=== PATIENT | female | born 1995 | race Caucasian/White ===

== ENCOUNTER 2019-03-24 08:21 | Emergency (ER) | payer OTHER ==
--- NOTE | 2019-03-24 08:35 | EDM.PDOC ---
ED HPI GENERAL MEDICAL PROBLEM - General Chief Complaint: HEAVY DUTY CUSTODIAN Problem Stated Complaint: 7 WKS PREG, BLEEDING Time Seen by Provider: 03/24/19 08:29 - History of Present Illness INITIAL COMMENTS - FREE TEXT/NARRATIVE: HISTORY AND PHYSICAL: History of present illness: Patient's 23-year-old female reportedly 7 weeks presents concern of vaginal spotting this has improved she has no cramping abdominal pain no other complaints she has seen an HEAD CUSTODIAN 1 she has not had an ultrasound or any other diagnostics. Review of systems: As per history of present illness and below otherwise all systems reviewed and negative. Past medical history: As per history of present illness and as reviewed below otherwise noncontributory. Surgical history: As per history of present illness and as reviewed below otherwise noncontributory. Social history: No reported history of drug or alcohol abuse. Family history: As per history of present illness and as reviewed below otherwise noncontributory. Physical exam: HEENT: Atraumatic, normocephalic, pupils reactive, negative for conjunctival pallor or scleral icterus, mucous membranes moist, throat clear, neck supple, nontender, trachea midline. Lungs: Clear to auscultation, breath sounds equal bilaterally, chest nontender. Heart: S1S2, regular, negative for clicks, rubs, or JVD. Abdomen: Soft, nondistended, nontender. Negative for masses or hepatosplenomegaly. Negative for costovertebral tenderness. Pelvis: Stable nontender. Genitourinary: Deferred. Rectal: Deferred. Extremities: Atraumatic, negative for cords or calf pain. Neurovascular unremarkable. Neuro: Awake, alert, oriented. Cranial nerves II through XII unremarkable. Cerebellum unremarkable. Motor and sensory unremarkable throughout. Exam nonfocal. Diagnostics: EBC CMP quantitative beta ABO Rh pelvic ultrasound Therapeutics: None Impression: #1 threatened miscarriage Definitive disposition and diagnosis as appropriate pending reevaluation and review of above. - Related Data Allergies Allergy/AdvReac Type Severity Reaction Status Date / Time No Known Allergies Allergy Verified 03/24/19 08:46 Home Meds: Home Meds . [No Known Home Meds] 03/24/19 [History] ED ROS GENERAL - Review of Systems Review Of Systems: Comprehensive ROS is negative, except as noted in HPI. ED EXAM, GENERAL - Physical Exam Exam: See Below (See dictation) Course - Vital Signs Text/Narrative:: Discussed with patient need for close follow-up repeat quantitative beta hCG in 48 hours that findings are most likely consistent with early IUP but that threatened remains in the differential and vaginal rest and returning for pain bleeding dizziness or other concerns as discussed are important. Patient agrees and understands Last Recorded V/S: Last Vital Signs Temp 36.4 C 03/24/19 08:30 Pulse 130 H 03/24/19 08:30 Resp 18 03/24/19 08:30 BP 147/91 H 03/24/19 08:30 Pulse Ox 96 03/24/19 08:30 - Orders/Labs/Meds Labs: Laboratory Tests 03/24/19 03/24/19 03/24/19 Range/Units 08:47 08:47 08:47 WBC 11.47 H (4.0-11.0) K/uL RBC 4.60 (4.30-5.90) M/uL Hgb 14.3 (12.0-16.0) g/dL Hct 40.8 (36.0-46.0) % MCV 88.7 (80.0-98.0) fL MCH 31.1 (27.0-32.0) pg MCHC 35.0 (31.0-37.0) g/dL RDW Std Deviation 39.8 (28.0-62.0) fl RDW Coeff of Elizabeth 13 (11.0-15.0) % Plt Count 158 (150-400) K/uL MPV 11.50 (7.40-12.00) fL Neut % (Auto) 77.4 (48.0-80.0) % Lymph % (Auto) 14.6 L (16.0-40.0) % Placer % (Auto) 6.3 (0.0-15.0) % Eos % (Auto) 1.5 (0.0-7.0) % Baso % (Auto) 0.2 (0.0-1.5) % Neut # (Auto) 8.9 H (1.4-5.7) K/uL Lymph # (Auto) 1.7 (0.6-2.4) K/uL Placer # (Auto) 0.7 (0.0-0.8) K/uL Eos # (Auto) 0.2 (0.0-0.7) K/uL Baso # (Auto) 0.0 (0.0-0.1) K/uL Nucleated RBC % 0.0 /100WBC Nucleated RBCs # 0 K/uL Sodium 138 (136-145) mmol/L Potassium 4.2 (3.5-5.1) mmol/L Chloride 105 (98-107) mmol/L Carbon Dioxide 24.0 (21.0-32.0) mmol/L BUN 10 (7.0-18.0) mg/dL Creatinine 0.7 (0.6-1.0) mg/dL Est Cr Clr Drug Dosing TNP Estimated GFR (MDRD) > 60.0 ml/min Glucose 97 (74-106) mg/dL Calcium 8.8 (8.5-10.1) mg/dL Total Bilirubin 0.5 (0.2-1.0) mg/dL AST 13 L (15-37) IU/L ALT 22 (14-63) IU/L Alkaline Phosphatase 54 (46-116) U/L Total Protein 7.7 (6.4-8.2) g/dL Albumin 4.5 (3.4-5.0) g/dL Globulin 3.2 (2.6-4.0) g/dL Albumin/Globulin Ratio 1.4 (0.9-1.6) HCG, Quant 989.0 mIU/mL Blood Type 03/24/19 Range/Units 08:47 WBC (4.0-11.0) K/uL RBC (4.30-5.90) M/uL Hgb (12.0-16.0) g/dL Hct (36.0-46.0) % MCV (80.0-98.0) fL MCH (27.0-32.0) pg MCHC (31.0-37.0) g/dL RDW Std Deviation (28.0-62.0) fl RDW Coeff of Elizabeth (11.0-15.0) % Plt Count (150-400) K/uL MPV (7.40-12.00) fL Neut % (Auto) (48.0-80.0) % Lymph % (Auto) (16.0-40.0) % Placer % (Auto) (0.0-15.0) % Eos % (Auto) (0.0-7.0) % Baso % (Auto) (0.0-1.5) % Neut # (Auto) (1.4-5.7) K/uL Lymph # (Auto) (0.6-2.4) K/uL Placer # (Auto) (0.0-0.8) K/uL Eos # (Auto) (0.0-0.7) K/uL Baso # (Auto) (0.0-0.1) K/uL Nucleated RBC % /100WBC Nucleated RBCs # K/uL Sodium (136-145) mmol/L Potassium (3.5-5.1) mmol/L Chloride (98-107) mmol/L Carbon Dioxide (21.0-32.0) mmol/L BUN (7.0-18.0) mg/dL Creatinine (0.6-1.0) mg/dL Est Cr Clr Drug Dosing Estimated GFR (MDRD) ml/min Glucose (74-106) mg/dL Calcium (8.5-10.1) mg/dL Total Bilirubin (0.2-1.0) mg/dL AST (15-37) IU/L ALT (14-63) IU/L Alkaline Phosphatase (46-116) U/L Total Protein (6.4-8.2) g/dL Albumin (3.4-5.0) g/dL Globulin (2.6-4.0) g/dL Albumin/Globulin Ratio (0.9-1.6) HCG, Quant mIU/mL Blood Type A POSITIVE Departure - Departure Time of Disposition: 10:32 Disposition: Home, Self-Care 01 Condition: Good Clinical Impression: Threatened , Hemorrhage, antepartum, first trimester - Discharge Information Referrals: Cynthia Mantilla MD [Primary Care Provider] - Forms: ED Department Discharge Additional Instructions: The following information is given to patients seen in the emergency department who are being discharged to home. This information is to outline your options for follow-up care. We provide all patients seen in our emergency department with a follow-up referral. The need for follow-up, as well as the timing and circumstances, are variable depending upon the specifics of your emergency department visit. If you don't have a primary care physician on staff, we will provide you with a referral. We always advise you to contact your personal physician following an emergency department visit to inform them of the circumstance of the visit and for follow-up with them and/or the need for any referrals to a consulting specialist. The emergency department will also refer you to a specialist when appropriate. This referral assures that you have the opportunity for followup care with a specialist. All of these measure are taken in an effort to provide you with optimal care, which includes your followup. Under all circumstances we always encourage you to contact your private physician who remains a resource for coordinating your care. When calling for followup care, please make the office aware that this follow-up is from your recent emergency room visit. If for any reason you are refused follow-up, please contact the [facility] emergency department at and asked to speak to the emergency department charge nurse. Follow-up HEAVY DUTY CUSTODIAN as discussed vaginal rest as discussed repeat quantitative beta hCG in 48 hours return as needed as discussed
[2019-03-24 09:14] LABS: BLOOD UREA NITROGEN,BUN 10 mg/dL (7.0-18.0); CHLORIDE,CL 105 mmol/L (98-107); GLUCOSE RANDOM 97 mg/dL (74-106); POTASSIUM,K 4.2 mmol/L (3.5-5.1); SODIUM,NA 138 mmol/L (136-145)
--- NOTE | 2019-03-24 10:16 | US ---
INDICATION: Pain, vaginal bleeding. TECHNIQUE: Ultrasound OB pelvis transvaginal. Real time gonzales scale imaging of the pelvis was performed. COMPARISON: None FINDINGS: Sonographic imaging demonstrates a small fluid collection within the uterine endometrial canal likely representing a gestational sac. Measuring 5 millimeters in mean diameter corresponding with a gestational age of 5 weeks 0 days. A pole is not visualized likely due to the early gestational age. Correlation with serial beta HCGs and/or followup sonography in 2- 3 weeks is recommended. The placenta has not yet developed. The gestational sac has a normal appearance and there is no evidence of a perigestational hemorrhage. The amount of fluid within the sac appears appropriate for gestational age. The cervix is closed. The myometrium appears normal. The ovaries are of normal size with the right ovary measuring 2.8 x 2.4 x 1.9 centimeters and the left ovary measuring 2.9 x 2.7 x 1.5 centimeters. There are no suspicious fluid collections noted in the cul-de-sac. IMPRESSION: 1. Small fluid collection within the uterine endometrial canal measures 5 millimeters in diameter and could represent a gestational sac corresponding with a gestational age of 5 weeks 0 days. A pole is not identified. Correlation with serial beta HCGs and/or followup sonography in 2-3 weeks is recommended. 2. Other findings are unremarkable as noted above. Dictated by Basil Rivas MD @ Mar 24 2019 10:08AM Signed by Dr. Basil Rivas @ Mar 24 2019 10:14AM
== END 2019-03-24 10:45 | disposition home or self-care (01) ==
LOC: MW.ED 08:21
DX: O20.0 Threatened abortion (principal); Z3A.01 Less than 8 weeks gestation of pregnancy
CPT/HCPCS: 36415; 76801; 76801-26; 80053; 84702; 85025; 86900; 86901; 99283; 99284-25

== ENCOUNTER 2021-02-21 17:13 | Inpatient (IN) | payer BC ==
[2021-02-21] MEDS ORDERED: Sodium Chloride 0.9% 10 ML Syringe FLUSH PRN (17:19)
[2021-02-21] MEDS ORDERED: Sodium Chloride 0.9% 10 ML SDV IV PRN (17:19)
[2021-02-21] MEDS ORDERED: Terbutaline 1 MG/ML SDV SUBCUT PRN (17:19)
[2021-02-21] MEDS ORDERED: Tranexamic Acid 1,000 MG in Sodium Chloride 0.9% 100 ML IV PRN (17:19)
[2021-02-21] MEDS ORDERED: Water For Irrigation,Sterile 1,000 ML Container IRR PRN (17:19)
[2021-02-21] MEDS ORDERED: Methylergonovine 0.2 MG/1 ML Amp IM PRN (17:19)
[2021-02-21] MEDS ORDERED: Nalbuphine 10 MG/1 ML Vial IVPUSH PRN (17:19)
[2021-02-21] MEDS ORDERED: Carboprost Tromethamine 250 MCG/1 ML Amp IM PRN (17:19)
[2021-02-21] MEDS ORDERED: Misoprostol 200 MCG Tab PO PRN (17:19)
[2021-02-21] MEDS ORDERED: Sodium Chloride 0.9% 2.5 ML Syringe FLUSH PRN (17:19)
[2021-02-21] MEDS ORDERED: Misoprostol 25 MCG (1/4 of 100 MCG) Tab VAG PRN (17:19)
[2021-02-21] MEDS ORDERED: Lidocaine 1% 50 ML MDV INJECT PRN (17:19)
[2021-02-21] MEDS ORDERED: Butorphanol 1 MG/ML SDV IVPUSH PRN (17:19)
[2021-02-21] MEDS ORDERED: Oxytocin/0.9 % Sodium Chloride 30 UNIT/500 ML BAG IV SCH ×2 (17:30)
[2021-02-21] MEDS: Lactated Ringers 1,000 ML IV SCH ×2 (19:08→22:08)
[2021-02-21] MEDS: Misoprostol 25 MCG (1/4 of 100 MCG) Tab VAG PRN (20:20)
[2021-02-22] MEDS: Lactated Ringers 1,000 ML IV SCH ×4 (05:10→22:00)
[2021-02-22] MEDS: Misoprostol 25 MCG (1/4 of 100 MCG) Tab VAG PRN (08:40)
[2021-02-22] MEDS ORDERED: Ropivacaine HCl/PF 200 ML ONE (14:03)
[2021-02-22] MEDS ORDERED: ePHEDrine 50 MG/ML SDV IVPUSH PRN ×2 (14:27→14:28)
--- NOTE | 2021-02-22 14:27 | PCM.POSTAN ---
POST ANESTHESIA ASSESSMENT - MENTAL STATUS Mental Status: Alert, Oriented - RESPIRATORY Respiratory Status: Respiratory Rate WNL, Airway Patent, O2 Saturation Stable - CARDIOVASCULAR CV Status: Pulse Rate WNL, Blood Pressure Stable - GASTROINTESTINAL GI Status: No Symptoms - POST OP HYDRATION Hydration Status: Adequate & Stable
--- NOTE | 2021-02-22 14:27 | PCM.PREANE ---
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) - Physical Assessment NPO Status Date: 02/22/21 NPO Status Time: 08:00 Height: 5 ft 4 in Weight: 200 lb ASA Class: 3 Mental Status: Alert & Oriented x3 Airway Class: Mallampati = 2 Dentition: Reports: Normal Dentition ROM/Head Extension: Full Lungs: Clear to Auscultation, Normal Respiratory Effort Cardiovascular: Regular Rate, Regular Rhythm - Lab Values: Laboratory Last Values WBC 7.10 K/uL (4.0-11.0) 02/21/21 17:45 RBC 4.24 M/uL (4.30-5.90) L 02/21/21 17:45 Hgb 11.8 g/dL (12.0-16.0) L 02/21/21 17:45 Hct 35.2 % (36.0-46.0) L 02/21/21 17:45 MCV 83.0 fL (80.0-98.0) 02/21/21 17:45 MCH 27.8 pg (27.0-32.0) 02/21/21 17:45 MCHC 33.5 g/dL (31.0-37.0) 02/21/21 17:45 RDW Std Deviation 39.9 fl (28.0-62.0) 02/21/21 17:45 RDW Coeff of Elizabeth 13 % (11.0-15.0) 02/21/21 17:45 Plt Count 165 02/21/21 17:45 MPV 11.20 fL (7.40-12.00) 02/21/21 17:45 Nucleated RBC % 0.0 /100WBC 02/21/21 17:45 Nucleated RBCs # 0 K/uL 02/21/21 17:45 SARS-CoV-2 RNA (KARLENE) POSITIVE (NEGATIVE) H 02/21/21 17:30 Blood Type A POSITIVE 02/21/21 17:45 Antibody Screen NEGATIVE 02/21/21 17:45 - Allergies Allergies/Adverse Reactions: Allergies Allergy/AdvReac Type Severity Reaction Status Date / Time No Known Allergies Allergy Verified 12/20/20 20:24 - Blood Blood Available: Yes - Acknowledgements Anesthesia Type Planned: Epidural Pt an Appropriate Candidate for the Planned Anesthesia: Yes Alternatives and Risks of Anesthesia Discussed w Pt/Guardian: Yes Pt/Guardian Understands and Agrees with Anesthesia Plan: Yes PreAnesthesia Questionnaire HEENT History: Reports: None Cardiovascular History: Reports: None Respiratory History: Reports: None Gastrointestinal History: Reports: None Genitourinary History: Reports: None LUBE MAN History: Reports: Polycystic Ovaries, , Spontaneous , Other (See Below) Other OB/BYN History: Oligomenorrhea, Bicornuate Uterus. Musculoskeletal History: Reports: None Neurological History: Reports: None Psychiatric History: Reports: None Endocrine/Metabolic History: Reports: None Hematologic History: Reports: Other (See Below) Other Hematologic History: Thrombocytopenia Immunologic History: Reports: None Oncologic (Cancer) History: Reports: None Dermatologic History: Reports: None - Infectious Disease History Infectious Disease History: Reports: Influenza - Past Surgical History Head Surgeries/Procedures: Reports: None HEENT Surgical History: Reports: Adenoidectomy, Tonsillectomy Cardiovascular Surgical History: Reports: None Respiratory Surgical History: Reports: None GI Surgical History: Reports: None Female Surgical History: Reports: None Endocrine Surgical History: Reports: None Neurological Surgical History: Reports: None Musculoskeletal Surgical History: Reports: None Oncologic Surgical History: Reports: None Dermatological Surgical History: Reports: None - SUBSTANCE USE Tobacco Use Status *Q: Never Tobacco User Tobacco Use Within Last Twelve Months: No Second Hand Smoke Exposure: No Recreational Drug Use History: No - HOME MEDS Home Medications: Home Meds Pnv No.95/Ferrous Fum/Folic AC [ Tablet] 1 tab PO BEDTIME 12/20/20 [History] - CURRENT (IN HOUSE) MEDS Current Meds: Current Medications Butorphanol Tartrate (Butorphanol 1 Mg/Ml Sdv) 1 mg IVPUSH Q1H PRN PRN Reason: Pain (severe 7-10) Carboprost Tromethamine (Carboprost Tromethamine 250 Mcg/1 Ml Amp) 250 mcg IM ASDIRECTED PRN PRN Reason: Post Hemorrhage Oxytocin/Sodium Chloride (Oxytocin 30 Unit In Ns 0.9% 500 Ml Premix) 30 unit in 500 mls @ 500 mls/hr IV TITRATE KARLA Tranexamic Acid 1,000 mg/ (Sodium Chloride) 110 mls @ 660 mls/hr IV ONETIME PRN PRN Reason: Bleeding Oxytocin/Sodium Chloride (Oxytocin 30 Unit In Ns 0.9% 500 Ml Premix) 30 unit in 500 mls @ 2 mls/hr IV TITRATE KARLA; Protocol Last Admin: 02/22/21 14:22 Dose: 2 munits/min, 2 mls/hr Documented by: Lactated Ringer's (Ringers, Lactated) 1,000 mls @ 150 mls/hr IV ASDIRECTED KARLA Last Admin: 02/22/21 14:16 Dose: 150 mls/hr Documented by: Lidocaine HCl (Lidocaine 1% 50 Ml Mdv) 50 ml INJECT ONETIME PRN PRN Reason: Laceration repair Methylergonovine Maleate (Methylergonovine 0.2 Mg/1 Ml Amp) 0.2 mg IM ASDIRECTED PRN PRN Reason: Post Hemorrhage Misoprostol (Misoprostol 200 Mcg Tab) 200 mcg PO ONETIME PRN PRN Reason: Post Hemorrhage Misoprostol (Misoprostol 25 Mcg (1/4 Of 100 Mcg) Tab) 25 mcg VAG ONETIME PRN PRN Reason: Cervical Ripening Last Admin: 02/22/21 08:40 Dose: 25 mcg Documented by: Misoprostol (Misoprostol 25 Mcg (1/4 Of 100 Mcg) Tab) 25 mcg VAG Q6H PRN PRN Reason: Cervical Ripening Last Admin: 02/22/21 02:28 Dose: 25 mcg Documented by: Nalbuphine HCl (Nalbuphine 10 Mg/1 Ml Vial) 10 mg IVPUSH Q1H PRN PRN Reason: Pain (severe 7-10) Sodium Chloride (Sodium Chloride 0.9% 10 Ml Syringe) 10 ml FLUSH ASDIRECTED PRN PRN Reason: Keep Vein Open Sodium Chloride (Sodium Chloride 0.9% 2.5 Ml Syringe) 2.5 ml FLUSH ASDIRECTED PRN PRN Reason: Keep Vein Open Sodium Chloride (Sodium Chloride 0.9% 10 Ml Sdv) 10 ml IV ASDIRECTED PRN PRN Reason: IV Use Sterile Water (Water For Irrigation,Sterile 1,000 Ml Container) 1,000 ml IRR A SDIRECTED PRN PRN Reason: delivery Terbutaline Sulfate (Terbutaline 1 Mg/Ml Sdv) 0.25 mg SUBCUT ASDIRECTED PRN PRN Reason: Tacysystole Discontinued Medications Ropivacaine (Naropin 0.2%) Confirm Administered Dose 200 mls @ as directed .ROUTE .[facility] ONE Stop: 02/22/21 14:04
[2021-02-22] MEDS ORDERED: Ropivacaine 0.2% 2MG/ML 200 ML Bag EPIDUR SCH (14:30)
--- NOTE | 2021-02-22 14:33 | PCM.SN.2 ---
Time Documentation - Pre-Procedure Checklist Attending Provider Aware: Yes Chart Reviewed: Yes Consent Signed: Yes Labs Reviewed: Yes VS/FHR Reviewed: Yes Patient Identification Confirmation Method: Reports: Chart Barcode, Chart Visual, ID Band Barcode, Verbal Parent Pt an Appropriate Candidate for the Planned Anesthesia: Yes Alternatives and Risks of Anesthesia Discussed w Pt/Guardian: Yes - Procedure Procedure Start Date: 02/22/21 Procedure Start Time: 13:[address]: Reports: Blood Pressure, Heart Rate, SPO2 Functional IV: Yes Safety Measures: Reports: Patient Identified, Procedure Verified, Site Verified, Procedure Time Out Patient Position: Reports: Sitting Prep: Reports: Alcohol x3, Betadine x3 Local Anesthetic: Reports: Intradermal Wheal w Lidocaine 1% Regional Placement Level: Reports: L2-3 Needle: Reports: 17 g Touhy Approach: Reports: Midline Technique: Reports: SIERRA Glass Syringe Parasthesia: Reports: None Fluid Obtained: Reports: None Test Dose Time: 13:55 Test Dose Medication: Reports: Lidocaine 1.5% w Epinephrine 1:200,000 Test Dose Response: Reports: Negative Continuous Infusion Start Time: 14:30 Continuous Infusion Medication: 0.2% Naropin Continuous Infusion Rate: 16cc/hr Continuous Infusion PCS Bolus Option: 4cc Continuous Infusion Lockout Dose (cc/hr): 28 Patient Position Post Placement: Reports: Supline/DOTTY Post-procedure Pain Level: 3 VS and FHR Monitored in Unit Post Placement: Yes Procedure End Date: 02/22/21 Procedure End Time: 14:50
[2021-02-22] MEDS ORDERED: Acetaminophen 325 MG Tab PO ONE (19:33)
[2021-02-22] MEDS ORDERED: Acetaminophen 500 MG Tab ONE (19:38)
[2021-02-22] MEDS ORDERED: Acetaminophen 500 MG Tab PO ONE (19:42)
--- NOTE | 2021-02-22 20:57 | PCM.DEL ---
L & D Note - General Info Date of Service: 02/22/21 Mother's Due Date: 03/01/21 - Delivery Note Labor: Induced by Oxytocin Cervical Ripening Method: Misoprostil Delivery Outcome: Livebirth Infant Delivery Method: Spontaneous Vaginal Delivery-Single Presentation: Left Occiput Anterior (TAYA) Nuchal Cord: Reduced Prep: Other Anesthesia Type: Epidural Amniotic Fluid Description: Clear Episiotomy Type: None Laceration: 2nd Degree Suture type: Vicryl Suture size: 2-0 Placenta: Intact, Spontaneous Cord: 3 Vessels Estimated Blood Loss: 300 Resuscitation Needed: No : Suctioned Score 1 min: 8 Score 5 min: 9 - General Info Date of Service: 02/22/21 - Patient Data Vitals - Most Recent: Last Vital Signs Temp 37.2 C 02/22/21 19:49 Pulse Resp BP Pulse Ox Weight - Most Recent: 90.718 kg I&O - Last 24 Hours: Intake & Output 02/22/21 02/22/21 02/22/21 06:59 14:59 22:59 Intake Total 1000 975 Balance 1000 975 Med Orders - Current: Current Medications Butorphanol Tartrate (Butorphanol 1 Mg/Ml Sdv) 1 mg IVPUSH Q1H PRN PRN Reason: Pain (severe 7-10) Carboprost Tromethamine (Carboprost Tromethamine 250 Mcg/1 Ml Amp) 250 mcg IM ASDIRECTED PRN PRN Reason: Post Hemorrhage Ephedrine Sulfate (Ephedrine 50 Mg/Ml Sdv) 10 mg IVPUSH Q5M PRN PRN Reason: Hypotension Ephedrine Sulfate (Ephedrine 50 Mg/Ml Sdv) 10 mg IVPUSH Q1M PRN PRN Reason: Hypotension Oxytocin/Sodium Chloride (Oxytocin 30 Unit In Ns 0.9% 500 Ml Premix) 30 unit in 500 mls @ 500 mls/hr IV TITRATE KARLA Tranexamic Acid 1,000 mg/ (Sodium Chloride) 110 mls @ 660 mls/hr IV ONETIME PRN PRN Reason: Bleeding Oxytocin/Sodium Chloride (Oxytocin 30 Unit In Ns 0.9% 500 Ml Premix) 30 unit in 500 mls @ 2 mls/hr IV TITRATE KARLA; Protocol Last Titration: 02/22/21 16:50 Dose: 10 munits/min, 10 mls/hr Documented by: Lactated Ringer's (Ringers, Lactated) 1,000 mls @ 150 mls/hr IV ASDIRECTED KARLA Last Admin: 02/22/21 18:49 Dose: 150 mls/hr Documented by: Lidocaine HCl (Lidocaine 1% 50 Ml Mdv) 50 ml INJECT ONETIME PRN PRN Reason: Laceration repair Methylergonovine Maleate (Methylergonovine 0.2 Mg/1 Ml Amp) 0.2 mg IM ASDIRECTED PRN PRN Reason: Post Hemorrhage Miscellaneous Medication (Phenylephrine Hcl In 0.9% Nacl 1 Mg/10 Ml Syringe) 0.1 mg IVPUSH Q1M PRN PRN Reason: Hypotension Misoprostol (Misoprostol 200 Mcg Tab) 200 mcg PO ONETIME PRN PRN Reason: Post Hemorrhage Misoprostol (Misoprostol 25 Mcg (1/4 Of 100 Mcg) Tab) 25 mcg VAG ONETIME PRN PRN Reason: Cervical Ripening Last Admin: 02/22/21 08:40 Dose: 25 mcg Documented by: Misoprostol (Misoprostol 25 Mcg (1/4 Of 100 Mcg) Tab) 25 mcg VAG Q6H PRN PRN Reason: Cervical Ripening Last Admin: 02/22/21 02:28 Dose: 25 mcg Documented by: Nalbuphine HCl (Nalbuphine 10 Mg/1 Ml Vial) 10 mg IVPUSH Q1H PRN PRN Reason: Pain (severe 7-10) Ropivacaine (Ropivacaine 0.2% 2mg/Ml 200 Ml Bag) 400 mg EPIDUR ASDIRECTED KARLA Sodium Chloride (Sodium Chloride 0.9% 10 Ml Syringe) 10 ml FLUSH ASDIRECTED PRN PRN Reason: Keep Vein Open Sodium Chloride (Sodium Chloride 0.9% 2.5 Ml Syringe) 2.5 ml FLUSH ASDIRECTED PRN PRN Reason: Keep Vein Open Sodium Chloride (Sodium Chloride 0.9% 10 Ml Sdv) 10 ml IV ASDIRECTED PRN PRN Reason: IV Use Sterile Water (Water For Irrigation,Sterile 1,000 Ml Container) 1,000 ml IRR ASDIRECTED PRN PRN Reason: delivery Terbutaline Sulfate (Terbutaline 1 Mg/Ml Sdv) 0.25 mg SUBCUT ASDIRECTED PRN PRN Reason: Tacysystole Discontinued Medications Acetaminophen (Acetaminophen 500 Mg Tab) Confirm Administered Dose 1,000 mg .ROUTE .STK-[facility] ONE Stop: 02/22/21 19:39 Acetaminophen (Acetaminophen 500 Mg Tab) 1,000 mg PO ONETIME ONE Stop: 02/22/21 19:43 Last Admin: 02/22/21 19:49 Dose: 1,000 mg Documented by: Ropivacaine (Naropin 0.2%) Confirm Administered Dose 200 mls @ as directed .ROUTE .STK-[facility] ONE Stop: 02/22/21 14:04 - Exam Urinary Catheter Total Time: 0Days 0Hours - Problem List & Annotations (1) Vaginal delivery SNOMED Code(s): 840810928 Code(s): O80 - ENCOUNTER FOR FULL-TERM UNCOMPLICATED DELIVERY Status: Acute Current Visit: Yes - Problem List Review Problem List Initiated/Reviewed/Updated: Yes - My Orders Last 24 Hours: My Active Orders 02/22/21 Lunch Clear Liquid Diet [DIET]
[2021-02-22] MEDS ORDERED: Bisacodyl 10 MG Supp RECTAL PRN (20:59)
[2021-02-22] MEDS ORDERED: Methylergonovine 0.2 MG/1 ML Amp IM PRN (20:59)
[2021-02-22] MEDS ORDERED: Acetaminophen 500 MG Tab PO PRN ×2 (20:59)
[2021-02-22] MEDS ORDERED: Ibuprofen 400 MG Tab PO PRN (20:59)
[2021-02-22] MEDS ORDERED: Lanolin 100% Cream 7 GM Tube TOP PRN (20:59)
[2021-02-22] MEDS ORDERED: Docusate Sodium 100 MG Cap PO PRN (20:59)
[2021-02-22] MEDS ORDERED: Tranexamic Acid 1,000 MG in Sodium Chloride 0.9% 100 ML IV PRN (20:59)
[2021-02-22] MEDS ORDERED: Oxytocin/0.9 % Sodium Chloride 30 UNIT/500 ML BAG ONE ×2 (22:08→23:16)
--- NOTE | 2021-02-22 22:30 | OR ---
SURGEON: Harini Jose M.D. DATE OF PROCEDURE: 02/22/2021 PREOPERATIVE DIAGNOSES: 39-week intrauterine , mild gestational thrombocytopenia, suspected growth restriction, COVID positive. POSTOPERATIVE DIAGNOSES: 39-week intrauterine , mild gestational thrombocytopenia, suspected growth restriction, COVID positive. PROCEDURES: Cytotec and Pitocin induction of labor, term spontaneous vaginal delivery, repair of second-degree laceration. PRIMARY SURGEON: Harini Jose MD ANESTHESIA: Epidural. ESTIMATED BLOOD LOSS: 300 mL. FINDINGS: Liveborn male, score of 8 and 9, weighing 3170 g. Hypospadias noted by third helper. A second-degree perineal laceration, repaired. Placenta spontaneous, Schultze intact, with 3 vessels. COMPLICATIONS: None known. DISPOSITION: Mother and baby are in LDR in good condition. BRIEF HISTORY: This is a 25-year-old female. She is G2, P 0-0-1-0. She presents at 39-week gestation, fingertip and thick, for induction of labor. She received 3 doses of Cytotec. She is being induced due to gestational thrombocytopenia, which was mild throughout the with levels above 100, and actually has recovered with an admission platelet count in the 160s. She was seen by Maternal- Medicine. She did have an ultrasound with an abdominal circumference less than the 5th percentile. However, the fetus has developed normally and antepartum monitoring was discontinued due to normal growth. She presented to Labor and Delivery, received 3 doses of Cytotec. She felt that she had spontaneous rupture of membranes approximately at noon. She is known to be group B strep negative, and she received an epidural for pain control, and she progressed to complete. DESCRIPTION OF PROCEDURE: With the patient in dorsal lithotomy position, the patient pushed for less than 1 hour to a 5+ station, at which time, the head was delivered spontaneously and atraumatically over the perineum with support with subsequent delivery of the 's shoulders and body. Nuchal cord had been reduced, and the was handed to the mother in the presence of the nurse attending delivery. The infant was a liveborn male, score of 8 and 9, weighing 3170 g. Note of hypospadias. The Pitocin was initiated after delivery of the infant to assist with delivery of the placenta, which was delivered spontaneously, Schultze intact, with 3 vessels. At 1 minute of life, the cord was doubly clamped and cut. Cord blood had been collected for cord ABGs as well as routine cord blood sampling. After delivery of the placenta, fundal massage revealed a firm uterus 3 cm below the umbilicus. Upon inspection of the pelvis and perineum, there were no periurethral, vaginal sidewall, cervical, or rectal laceration. There was a small perineal laceration, second-degree in nature, repaired with a running lock suture of 3-0 Polysorb for the vaginal mucosa, a deep running suture of the same for the perineum, and a running subcuticular suture of this for the skin. Final sponge, needle, and instrument counts were correct. There were no known complications. Mother and baby remained in LDR in good condition. MARQUIS HUIZAR /[id number]
--- NOTE | 2021-02-22 22:57 | PCM.SN.2 ---
- Free Text/Narrative Note: Called as patient had passed several clots and became hypotensive, dizzy and drowsy. Nurse had started IV bolus, pitocin and fundal massage. When I arrive P was 70's/40's and pulse in 80's expressed additional clots of 196 ML, total blood loss during episode was 974 mg, at delivery was 300 ml. Patient placed in trendelenberg position and symptoms of dizziness improved. Methergine 0.2 mg given IM, TXA withheld due to Covid positive status. Straight cath produced about 10 ml of dark melissa urine. Continual fundal massage over about 15 minutes, minimal dark blood, no further clots. Type and cross 2 U PRBC ordered, but held pending labs. CBC, fibrinogen, CBC ordered. Patient is currently stable BP 108/66 pulse 84 states that her symptoms of dizziness and fatigue are much improved. Time Documentation
[2021-02-22] MEDS: Ibuprofen 800 MG Tab PO PRN (23:27)
[2021-02-23] MEDS: Benzocaine/Menthol 20%-0.5% Spray 78 GM Cannister TOP PRN ×2 (02:11→05:54)
[2021-02-23] MEDS: Witch Hazel Medicated Pads 40/Jar TOP PRN ×2 (02:12→05:53)
[2021-02-23] MEDS: Ibuprofen 800 MG Tab PO PRN ×2 (06:13→14:16)
--- NOTE | 2021-02-23 07:34 | PCM48HPAN ---
Post Anesthesia Note - EVALUATION WITHIN 48HRS OF ANESTHETIC Vital Signs in Normal Range: Yes Patient Participated in Evaluation: Yes Respiratory Function Stable: Yes Airway Patent: Yes Cardiovascular Function Stable: Yes Hydration Status Stable: Yes Pain Control Satisfactory: Yes Nausea and Vomiting Control Satisfactory: Yes Mental Status Recovered: Yes Vital Signs: Last Vital Signs Temp 97.2 F 02/23/21 04:35 Pulse 69 02/23/21 05:45 Resp 18 02/23/21 05:45 BP 105/68 02/23/21 05:45 Pulse Ox 98 02/23/21 05:45
--- NOTE | 2021-02-23 08:19 | PCM.PNPP ---
- General Info Date of Service: 02/23/21 Subjective Update: Minimal lochia since episode of hemorrhage. She would like to work on today. Functional Status: Reports: Pain Controlled, Tolerating Diet, Ambulating, Urinating - Review of Systems General: Reports: No Symptoms HEENT: Reports: No Symptoms Pulmonary: Reports: No Symptoms Cardiovascular: Reports: No Symptoms Gastrointestinal: Reports: No Symptoms Genitourinary: Reports: No Symptoms Musculoskeletal: Reports: No Symptoms Skin: Reports: No Symptoms Neurological: Reports: No Symptoms Psychiatric: Reports: No Symptoms - Patient Data Vital Signs - Most Recent: Last Vital Signs Temp 36.2 C 02/23/21 04:35 Pulse 69 02/23/21 05:45 Resp 18 02/23/21 05:45 BP 105/68 02/23/21 05:45 Pulse Ox 98 02/23/21 05:45 Weight - Most Recent: 90.718 kg I&O - Last 24 Hours: Intake & Output 02/22/21 02/23/21 02/23/21 22:59 06:59 14:59 Intake Total 975 Balance 975 Lab Results - Last 24 Hours: Laboratory Results - last 24 hr 02/21/21 02/22/21 02/22/21 Range/Units 17:45 20:25 22:43 WBC 12.38 H (4.0-11.0) K/uL RBC 3.05 L (4.30-5.90) M/uL Hgb 8.5 L (12.0-16.0) g/dL Hct 25.2 L (36.0-46.0) % MCV 82.6 (80.0-98.0) fL MCH 27.9 (27.0-32.0) pg MCHC 33.7 (31.0-37.0) g/dL RDW Std Deviation 40.0 (28.0-62.0) fl RDW Coeff of Elizabeth 13 (11.0-15.0) % Plt Count 196 (150-400) K/uL MPV 10.20 (7.40-12.00) fL Neut % (Auto) 81.5 H (48.0-80.0) % Lymph % (Auto) 8.9 L (16.0-40.0) % Johnston % (Auto) 9.5 (0.0-15.0) % Eos % (Auto) 0.0 (0.0-7.0) % Baso % (Auto) 0.1 (0.0-1.5) % Neut # (Auto) 10.1 H (1.4-5.7) K/uL Lymph # (Auto) 1.1 (0.6-2.4) K/uL Johnston # (Auto) 1.2 H (0.0-0.8) K/uL Eos # (Auto) 0.0 (0.0-0.7) K/uL Baso # (Auto) 0.0 (0.0-0.1) K/uL Nucleated RBC % 0.0 /100WBC Nucleated RBCs # 0 K/uL APTT (18.6-31.3) SEC Fibrinogen (215-411) mg/dL Cord ABG pH 7.358 (7.18-7.38) Cord ABG Base Excess -4 (-10--2) Cord VBG pH 7.347 (7.25-7.45) Cord VBG Base Excess -5 (-10--2) Blood Type A POSITIVE Antibody Screen NEGATIVE Crossmatch See Detail 02/22/21 02/23/21 Range/Units 22:43 03:15 WBC (4.0-11.0) K/uL RBC (4.30-5.90) M/uL Hgb 9.0 L (12.0-16.0) g/dL Hct 26.4 L (36.0-46.0) % MCV (80.0-98.0) fL MCH (27.0-32.0) pg MCHC (31.0-37.0) g/dL RDW Std Deviation (28.0-62.0) fl RDW Coeff of Elizabeth (11.0-15.0) % Plt Count (150-400) K/uL MPV (7.40-12.00) fL Neut % (Auto) (48.0-80.0) % Lymph % (Auto) (16.0-40.0) % Johnston % (Auto) (0.0-15.0) % Eos % (Auto) (0.0-7.0) % Baso % (Auto) (0.0-1.5) % Neut # (Auto) (1.4-5.7) K/uL Lymph # (Auto) (0.6-2.4) K/uL Johnston # (Auto) (0.0-0.8) K/uL Eos # (Auto) (0.0-0.7) K/uL Baso # (Auto) (0.0-0.1) K/uL Nucleated RBC % /100WBC Nucleated RBCs # K/uL APTT 33.0 H (18.6-31.3) SEC Fibrinogen 251 (215-411) mg/dL Cord ABG pH (7.18-7.38) Cord ABG Base Excess (-10--2) Cord VBG pH (7.25-7.45) Cord VBG Base Excess (-10--2) Blood Type Antibody Screen Crossmatch Med Orders - Current: Current Medications Acetaminophen (Acetaminophen 500 Mg Tab) 500 mg PO Q4H PRN PRN Reason: Pain (mild 1-3) Acetaminophen (Acetaminophen 500 Mg Tab) 1,000 mg PO Q4H PRN PRN Reason: Pain (mild 1-3) Benzocaine/Menthol (Benzocaine/Menthol 20%-0.5% [place] 78 Gm Cannister) 78 gm TOP ASDIRECTED PRN PRN Reason: Perineal Comfort Measure Last Admin: 02/23/21 05:54 Dose: 1 spray Documented by: Bisacodyl (Bisacodyl 10 Mg Supp) 10 mg RECTAL ONETIME PRN PRN Reason: Constipation Docusate Sodium (Docusate Sodium 100 Mg Cap) 100 mg PO Q12H PRN PRN Reason: Constipation Emollient Ointment (Lanolin 100% Cream 7 Gm Tube) 0 gm TOP ASDIRECTED PRN PRN Reason: Sore Nipples Tranexamic Acid 1,000 mg/ (Sodium Chloride) 110 mls @ 660 mls/hr IV ONETIME PRN PRN Reason: Bleeding Ibuprofen (Ibuprofen 400 Mg Tab) 400 mg PO Q4H PRN PRN Reason: Pain (mild 1-3) Ibuprofen (Ibuprofen 800 Mg Tab) 800 mg PO Q6H PRN PRN Reason: Cramping Last Admin: 02/23/21 06:13 Dose: 800 mg Documented by: Methylergonovine Maleate (Methylergonovine 0.2 Mg/1 Ml Amp) 0.2 mg IM ONETIME PRN PRN Reason: Excessive Vaginal Bleeding Last Admin: 02/22/21 22:16 Dose: 0.2 mg Documented by: Po De Souza (Po De Souza Medicated Pads 40/Jar) 1 pad TOP ASDIRECTED PRN PRN Reason: comfort care Last Admin: 02/23/21 05:53 Dose: 1 pad Documented by: Discontinued Medications Acetaminophen (Acetaminophen 500 Mg Tab) Confirm Administered Dose 1,000 mg .ROUTE .STK-MED ONE Stop: 02/22/21 19:39 Acetaminophen (Acetaminophen 500 Mg Tab) 1,000 mg PO ONETIME ONE Stop: 02/22/21 19:43 Last Admin: 02/22/21 19:49 Dose: 1,000 mg Documented by: Butorphanol Tartrate (Butorphanol 1 Mg/Ml Sdv) 1 mg IVPUSH Q1H PRN PRN Reason: Pain (severe 7-10) Carboprost Tromethamine (Carboprost Tromethamine 250 Mcg/1 Ml Amp) 250 mcg IM ASDIRECTED PRN PRN Reason: Post Hemorrhage Ephedrine Sulfate (Ephedrine 50 Mg/Ml Sdv) 10 mg IVPUSH Q5M PRN PRN Reason: Hypotension Ephedrine Sulfate (Ephedrine 50 Mg/Ml Sdv) 10 mg IVPUSH Q1M PRN PRN Reason: Hypotension Oxytocin/Sodium Chloride (Oxytocin 30 Unit In Ns 0.9% 500 Ml Premix) 30 unit in 500 mls @ 500 mls/hr IV TITRATE KARLA Tranexamic Acid 1,000 mg/ (Sodium Chloride) 110 mls @ 660 mls/hr IV ONETIME PRN PRN Reason: Bleeding Oxytocin/Sodium Chloride (Oxytocin 30 Unit In Ns 0.9% 500 Ml Premix) 30 unit in 500 mls @ 2 mls/hr IV TITRATE KARLA; Protocol Last Titration: 02/22/21 21:30 Dose: 0 munits/min, 0 mls/hr Documented by: Lactated Ringer's (Ringers, Lactated) 1,000 mls @ 150 mls/hr IV ASDIRECTED KARLA Last Admin: 02/22/21 22:00 Dose: 150 mls/hr Documented by: Ropivacaine (Naropin 0.2%) Confirm Administered Dose 200 mls @ as directed .ROUTE .STK-MED ONE Stop: 02/22/21 14:04 Oxytocin/Sodium Chloride (Oxytocin 30 Unit In Ns 0.9% 500 Ml Premix) Confirm Administered Dose 30 unit in 500 mls @ as directed [facility] Stop: 02/22/21 22:09 Last Admin: 02/22/21 22:46 Dose: 500 mls/hr Documented by: Oxytocin/Sodium Chloride (Oxytocin 30 Unit In Ns 0.9% 500 Ml Premix) Confirm Administered Dose 30 unit in 500 mls @ as [facility] Stop: 02/22/21 23:17 Last Admin: 02/22/21 23:26 Dose: 250 mls/hr Documented by: Lidocaine HCl (Lidocaine 1% 50 Ml Mdv) 50 ml INJECT ONETIME PRN PRN Reason: Laceration repair Methylergonovine Maleate (Methylergonovine 0.2 Mg/1 Ml Amp) 0.2 mg IM ASDI RECTED PRN PRN Reason: Post Hemorrhage Miscellaneous Medication (Phenylephrine Hcl In 0.9% Nacl 1 Mg/10 Ml Syringe) 0.1 mg IVPUSH Q1M PRN PRN Reason: Hypotension Misoprostol (Misoprostol 200 Mcg Tab) 200 mcg PO ONETIME PRN PRN Reason: Post Hemorrhage Misoprostol (Misoprostol 25 Mcg (1/4 Of 100 Mcg) Tab) 25 mcg VAG ONETIME PRN PRN Reason: Cervical Ripening Last Admin: 02/22/21 08:40 Dose: 25 mcg Documented by: Misoprostol (Misoprostol 25 Mcg (1/4 Of 100 Mcg) Tab) 25 mcg VAG Q6H PRN PRN Reason: Cervical Ripening Last Admin: 02/22/21 02:28 Dose: 25 mcg Documented by: Nalbuphine HCl (Nalbuphine 10 Mg/1 Ml Vial) 10 mg IVPUSH Q1H PRN PRN Reason: Pain (severe 7-10) Ropivacaine (Ropivacaine 0.2% 2mg/Ml 200 Ml Bag) 400 mg EPIDUR ASDIRECTED KARLA Sodium Chloride (Sodium Chloride 0.9% 10 Ml Syringe) 10 ml FLUSH ASDIRECTED PRN PRN Reason: Keep Vein Open Sodium Chloride (Sodium Chloride 0.9% 2.5 Ml Syringe) 2.5 ml FLUSH ASDIRECTED PRN PRN Reason: Keep Vein Open Sodium Chloride (Sodium Chloride 0.9% 10 Ml Sdv) 10 ml IV ASDIRECTED PRN PRN Reason: IV Use Sterile Water (Water For Irrigation,Sterile 1,000 Ml Container) 1,000 ml IRR ASDIRECTED PRN PRN Reason: delivery Terbutaline Sulfate (Terbutaline 1 Mg/Ml Sdv) 0.25 mg SUBCUT ASDIRECTED PRN PRN Reason: Tacysystole - Interaction Infant Disposition, : [place] in Room with Family Interaction: Holding Infant Feeding: Attempted ; Nursed Fair/Poor Support Person: Significant Other - Recovery Exam Fundal Tone: Firm Fundal Level: 2 Fingerbreadths Below Umbilicus Fundal Placement: Midline Lochia Amount: Scant Lochia Color: Rubra/Red Perineum Description: Intact, Minimal Bruising/Swelling Bladder Status: Voiding - Exam General: Alert, Oriented Lungs: Normal Respiratory Effort GI/Abdominal Exam: Soft, Non-Tender, No Distention Extremities: Normal Inspection, Non-Tender, No Pedal Edema Psy/Mental Status: Alert, Normal Affect, Normal Mood - Problem List & Annotations (1) Vaginal delivery SNOMED Code(s): 423886511 Code(s): O80 - ENCOUNTER FOR FULL-TERM UNCOMPLICATED DELIVERY Status: Acute Current Visit: Yes (2) hemorrhage, delivered, current hospitalization SNOMED Code(s): 68628447, 215467350 Code(s): O72.1 - OTHER IMMEDIATE HEMORRHAGE Status: Acute Current Visit: Yes - Problem List Review Problem List Initiated/Reviewed/Updated: Yes - My Orders Last 24 Hours: My Active Orders 02/22/21 20:59 Patient Status [ADT] Routine May Shower [RC] ASDIRECTED Up ad Leeanne [RC] ASDIRECTED Vital Signs [RC] PER UNIT ROUTINE Acetaminophen [Tylenol Extra Strength] 1,000 mg PO Q4H PRN Acetaminophen [Tylenol Extra Strength] 500 mg PO Q4H PRN Benzocaine/Menthol [Dermoplast Pain Relief 20%-0.5% [place]] 78 gm TOP ASDIRECTED PRN Docusate Sodium [Colace] 100 mg PO Q12H PRN Ibuprofen [Motrin] 400 mg PO Q4H PRN Ibuprofen [Motrin] 800 mg PO Q6H PRN Lanolin [Lansinoh HPA] See Dose Instructions TOP ASDIRECTED PRN Methylergonovine [Methergine] 0.2 mg IM ONETIME PRN Tranexamic Acid [Cyklokapron] 1,000 mg Sodium Chloride 0.9% [Normal Saline] 100 ml IV ONETIME bisacodyL [Dulcolax] 10 mg RECTAL ONETIME PRN witch Ethan [Tucks] 1 pad TOP ASDIRECTED PRN Assess Lochia [WOMSER] Per Unit Routine Assess Uterine Involution [WOMSER] Per Unit Routine Peripheral IV Discontinue [OM.PC] Routine Resuscitation Status Routine 02/22/21 21:02 Perineal Care [OM.PC] Per Unit Routine 02/22/21 22:15 PACKED CELLS [RED BLOOD CELLS LP] [BBK] Stat 02/23/21 Breakfast Regular Diet [DIET] - Assessment Assessment:: PPD #1 complicated by hemorrhage due to uterine atony. Now stable, minimal lochia, tolerating diet. - Plan Plan:: Recheck CBC in am, discussed IV iron and patient agrees to proceed, anticipate home tomorrow.
[2021-02-23] MEDS ORDERED: Iron Sucrose Complex 100 MG/5 ML SDV IVPUSH ONE (08:20)
[2021-02-23] MEDS ORDERED: Iron Sucrose Complex 200 MG in Sodium Chloride 0.9% 100 ML IV ONE (08:30)
[2021-02-24] MEDS: Ibuprofen 800 MG Tab PO PRN (07:52)
--- NOTE | 2021-02-24 09:08 | PCM.PNPP ---
- General Info Date of Service: 02/24/21 Functional Status: Reports: Pain Controlled, Tolerating Diet, Ambulating, Urinating - Review of Systems General: Reports: No Symptoms HEENT: Reports: No Symptoms Pulmonary: Reports: No Symptoms Cardiovascular: Reports: No Symptoms Gastrointestinal: Reports: No Symptoms Genitourinary: Reports: No Symptoms Musculoskeletal: Reports: No Symptoms Skin: Reports: No Symptoms Neurological: Reports: No Symptoms Psychiatric: Reports: No Symptoms - Patient Data Vital Signs - Most Recent: Last Vital Signs Temp 36.8 C 02/24/21 07:45 Pulse 88 02/24/21 07:45 Resp 16 02/24/21 07:45 BP 119/77 02/24/21 07:45 Pulse Ox 99 02/24/21 07:45 Weight - Most Recent: 90.718 kg I&O - Last 24 Hours: Intake & Output 02/23/21 02/24/21 02/24/21 22:59 06:59 14:59 Intake Total 600 Output Total 630 Balance -30 Lab Results - Last 24 Hours: Laboratory Results - last 24 hr 02/24/21 Range/Units 05:49 WBC 9.71 (4.0-11.0) K/uL RBC 2.68 L (4.30-5.90) M/uL Hgb 7.4 L (12.0-16.0) g/dL Hct 22.6 L (36.0-46.0) % MCV 84.3 (80.0-98.0) fL MCH 27.6 (27.0-32.0) pg MCHC 32.7 (31.0-37.0) g/dL RDW Std Deviation 41.5 (28.0-62.0) fl RDW Coeff of Elizabeth 14 (11.0-15.0) % Plt Count 197 (150-400) K/uL MPV 10.50 (7.40-12.00) fL Nucleated RBC % 0.0 /100WBC Nucleated RBCs # 0 K/uL Med Orders - Current: Current Medications Acetaminophen (Acetaminophen 500 Mg Tab) 500 mg PO Q4H PRN PRN Reason: Pain (mild 1-3) Acetaminophen (Acetaminophen 500 Mg Tab) 1,000 mg PO Q4H PRN PRN Reason: Pain (mild 1-3) Last Admin: 02/23/21 14:14 Dose: 1,000 mg Documented by: Benzocaine/Menthol (Benzocaine/Menthol 20%-0.5% [place] 78 Gm Cannister) 78 gm TOP ASDIRECTED PRN PRN Reason: Perineal Comfort Measure Last Admin: 02/23/21 05:54 Dose: 1 spray Documented by: Bisacodyl (Bisacodyl 10 Mg Supp) 10 mg RECTAL ONETIME PRN PRN Reason: Constipation Docusate Sodium (Docusate Sodium 100 Mg Cap) 100 mg PO Q12H PRN PRN Reason: Constipation Last Admin: 02/23/21 14:14 Dose: 100 mg Documented by: Emollient Ointment (Lanolin 100% Cream 7 Gm Tube) 0 gm TOP ASDIRECTED PRN PRN Reason: Sore Nipples Tranexamic Acid 1,000 mg/ (Sodium Chloride) 110 mls @ 660 mls/hr IV ONETIME PRN PRN Reason: Bleeding Iron Sucrose 200 mg/ Sodium (Chloride) 110 mls @ 400 mls/hr IV ONETIME ONE Stop: 02/24/21 09:46 Ibuprofen (Ibuprofen 400 Mg Tab) 400 mg PO Q4H PRN PRN Reason: Pain (mild 1-3) Ibuprofen (Ibuprofen 800 Mg Tab) 800 mg PO Q6H PRN PRN Reason: Cramping Last Admin: 02/24/21 07:52 Dose: 800 mg Documented by: Methylergonovine Maleate (Methylergonovine 0.2 Mg/1 Ml Amp) 0.2 mg IM ONETIME PRN PRN Reason: Excessive Vaginal Bleeding Last Admin: 02/22/21 22:16 Dose: 0.2 mg Documented by: Po De Souza (Po De Souza Medicated Pads 40/Jar) 1 pad TOP ASDIRECTED PRN PRN Reason: comfort care Last Admin: 02/23/21 05:53 Dose: 1 pad Documented by: Discontinued Medications Acetaminophen (Acetaminophen 500 Mg Tab) Confirm Administered Dose 1,000 mg .ROUTE .STK-MED ONE Stop: 02/22/21 19:39 Acetaminophen (Acetaminophen 500 Mg Tab) 1,000 mg PO ONETIME ONE Stop: 02/22/21 19:43 Last Admin: 02/22/21 19:49 Dose: 1,000 mg Documented by: Butorphanol Tartrate (Butorphanol 1 Mg/Ml Sdv) 1 mg IVPUSH Q1H PRN PRN Reason: Pain (severe 7-10) Carboprost Tromethamine (Carboprost Tromethamine 250 Mcg/1 Ml Amp) 250 mcg IM ASDIRECTED PRN PRN Reason: Post Hemorrhage Ephedrine Sulfate (Ephedrine 50 Mg/Ml Sdv) 10 mg IVPUSH Q5M PRN PRN Reason: Hypotension Ephedrine Sulfate (Ephedrine 50 Mg/Ml Sdv) 10 mg IVPUSH Q1M PRN PRN Reason: Hypotension Oxytocin/Sodium Chloride (Oxytocin 30 Unit In Ns 0.9% 500 Ml Premix) 30 unit in 500 mls @ 500 mls/hr IV TITRATE KARLA Tranexamic Acid 1,000 mg/ (Sodium Chloride) 110 mls @ 660 mls/hr IV ONETIME PRN PRN Reason: Bleeding Oxytocin/Sodium Chloride (Oxytocin 30 Unit In Ns 0.9% 500 Ml Premix) 30 unit in 500 mls @ 2 mls/hr IV TITRATE KARLA; Protocol Last Titration: 02/22/21 21:30 Dose: 0 munits/min, 0 mls/hr Documented by: Lactated Ringer's (Ringers, Lactated) 1,000 mls @ 150 mls/hr IV ASDIRECTED KARLA Last Admin: 02/22/21 22:00 Dose: 150 mls/hr Documented by: Ropivacaine (Naropin 0.2%) Confirm Administered Dose 200 mls @ as directed .ROUTE .STK-MED ONE Stop: 02/22/21 14:04 Oxytocin/Sodium Chloride (Oxytocin 30 Unit In Ns 0.9% 500 Ml Premix) Confirm Administered Dose 30 unit in 500 mls @ as directed .ROUTE .STK-MED ONE Stop: 02/22/21 22:09 Last Admin: 02/22/21 22:46 Dose: 500 mls/hr Documented by: Oxytocin/Sodium Chloride (Oxytocin 30 Unit In Ns 0.9% 500 Ml Premix) Confirm Administered Dose 30 unit in 500 mls @ as directed .ROUTE .STK-MED ONE Stop: 02/22/21 23:17 Last Admin: 02/22/21 23:26 Dose: 250 mls/hr Documented by: Iron Sucrose 200 mg/ Sodium (Chloride) 110 mls @ 220 mls/hr IV ONETIME ONE Stop: 02/23/21 08:59 Last Admin: 02/23/21 08:30 Dose: 220 mls/hr Documented by: Lidocaine HCl (Lidocaine 1% 50 Ml Mdv) 50 ml INJECT ONETIME PRN PRN Reason: Laceration repair Methylergonovine Maleate (Methylergonovine 0.2 Mg/1 Ml Amp) 0.2 mg IM ASDIRECTED PRN PRN Reason: Post Hemorrhage Miscellaneous Medication (Phenylephrine Hcl In 0.9% Nacl 1 Mg/10 Ml Syringe) 0.1 mg IVPUSH Q1M PRN PRN Reason: Hypotension Misoprostol (Misoprostol 200 Mcg Tab) 200 mcg PO ONETIME PRN PRN Reason: Post Hemorrhage Misoprostol (Misoprostol 25 Mcg (1/4 Of 100 Mcg) Tab) 25 mcg VAG ONETIME PRN PRN Reason: Cervical Ripening Last Admin: 02/22/21 08:40 Dose: 25 mcg Documented by: Misoprostol (Misoprostol 25 Mcg (1/4 Of 100 Mcg) Tab) 25 mcg VAG Q6H PRN PRN Reason: Cervical Ripening Last Admin: 02/22/21 02:28 Dose: 25 mcg Documented by: Nalbuphine HCl (Nalbuphine 10 Mg/1 Ml Vial) 10 mg IVPUSH Q1H PRN PRN Reason: Pain (severe 7-10) Ropivacaine (Ropivacaine 0.2% 2mg/Ml 200 Ml Bag) 400 mg EPIDUR ASDIRECTED KARLA Sodium Chloride (Sodium Chloride 0.9% 10 Ml Syringe) 10 ml FLUSH ASDIRECTED PRN PRN Reason: Keep Vein Open Sodium Chloride (Sodium Chloride 0.9% 2.5 Ml Syringe) 2.5 ml FLUSH ASDIRECTED PRN PRN Reason: Keep Vein Open Sodium Chloride (Sodium Chloride 0.9% 10 Ml Sdv) 10 ml IV ASDIRECTED PRN PRN Reason: IV Use Sterile Water (Water For Irrigation,Sterile 1,000 Ml Container) 1,000 ml IRR ASDIRECTED PRN PRN Reason: delivery Terbutaline Sulfate (Terbutaline 1 Mg/Ml Sdv) 0.25 mg SUBCUT ASDIRECTED PRN PRN Reason: Tacysystole - Infant Interaction Infant Disposition, : [place] in Room with Family Infant Interaction: Holding Infant Feeding: Attempted ; Nursed Fair/Poor Support Person: Significant Other - Recovery Exam Fundal Tone: Firm Fundal Level: 3 Fingerbreadths Below Umbilicus Fundal Placement: Midline Lochia Amount: Scant Lochia Color: Rubra/Red Perineum Description: Other (see below) Other Perinuem Description: 2nd degree laceration repaired. Episiotomy/Laceration: Approximated Bladder Status: Voiding Urinary Elimination: Voided - Exam General: Alert, Oriented Lungs: Normal Respiratory Effort GI/Abdominal Exam: Soft, Non-Tender Extremities: Non-Tender, No Pedal Edema Skin: Warm, Dry, Intact Neurological: No New Focal Deficit Psy/Mental Status: Alert, Normal Affect, Normal Mood - Problem List & Annotations (1) Vaginal delivery SNOMED Code(s): 702715365 Code(s): O80 - ENCOUNTER FOR FULL-TERM UNCOMPLICATED DELIVERY Status: Acute Current Visit: Yes (2) hemorrhage, delivered, current hospitalization SNOMED Code(s): 21782588, 355336219 Code(s): O72.1 - OTHER IMMEDIATE HEMORRHAGE Status: Acute Current Visit: Yes - Problem List Review Problem List Initiated/Reviewed/Updated: Yes - My Orders Last 24 Hours: My Active Orders 02/24/21 09:05 Ready for Discharge [RC] PER UNIT ROUTINE 02/24/21 09:30 Iron Sucrose Complex [Venofer] 200 mg Sodium Chloride 0.9% [Normal Saline] 100 ml IV ONETIME - Assessment Assessment:: PPD #2 after complicated by hemorrhage due to uterine atony. Now stable, minimal lochia, tolerating diet. Covid positive - Plan Plan:: Discharge instructions reviewed today, may repeat IV iron today. Discussed Covid immunizations, precautions to protect baby. FOB needs immunizations, discussed options after out of quarantine. See written discharge instructions.
[2021-02-24] MEDS ORDERED: Iron Sucrose Complex 200 MG in Sodium Chloride 0.9% 100 ML IV ONE (09:30)
== END 2021-02-24 12:40 | disposition home or self-care (01) | DRG 560 ==
LOC: MW.OB 17:13 → MW.OBCHECK 17:13 → MW.OB 17:20 → MW.OBCHECK 17:20 → OBSVTOIN 02-22 20:21 → MW.OB 02-23 01:15
PROVIDERS: ADMIT Obstetrics & Gynecology; ATTEND Obstetrics & Gynecology
PROC: 10E0XZZ Delivery of Products of Conception, External Approach (ICD-10-PCS; principal; 2021-02-22)
PROC: 10907ZC Drainage of Amniotic Fluid, Therapeutic from Products of Conception, Via Natural or Artificial Opening (ICD-10-PCS; 2021-02-22)
PROC: 3E0P7VZ Introduction of Hormone into Female Reproductive, Via Natural or Artificial Opening (ICD-10-PCS; 2021-02-22)
PROC: 3E033VJ Introduction of Other Hormone into Peripheral Vein, Percutaneous Approach (ICD-10-PCS; 2021-02-22)
PROC: 3E0R3BZ Introduction of Anesthetic Agent into Spinal Canal, Percutaneous Approach (ICD-10-PCS; 2021-02-22)
PROC: 0KQM0ZZ Repair Perineum Muscle, Open Approach (ICD-10-PCS; 2021-02-22)
DX: O99.12 Other diseases of the blood and blood-forming organs and certain disorders involving the immune mechanism complicating childbirth (principal); Z3A.37 37 weeks gestation of pregnancy; Z37.0 Single live birth; O69.81X0 Labor and delivery complicated by cord around neck, without compression, not applicable or unspecified; O70.1 Second degree perineal laceration during delivery; O72.1 Other immediate postpartum hemorrhage; O98.52 Other viral diseases complicating childbirth; U07.1 COVID-19; D69.6 Thrombocytopenia, unspecified
CPT/HCPCS: 01967; 36415; 51702; 82803; 85014; 85018; 85025; 85027; 85384; 85730; 86592; 86850; 86900; 86901; 86920; 86921; 86922; A9270-GY; J1756; J2210; J2590; J2795; J7120; U0002

== ENCOUNTER 2024-08-06 | Inpatient (IN) | payer BC ==
[2024-08-06] MEDS ORDERED: Sodium Chloride 0.9% 20 ML SDV IV PRN (00:39)
[2024-08-06] MEDS ORDERED: Misoprostol 200 MCG Tab PO PRN (00:39)
[2024-08-06] MEDS ORDERED: Sodium Chloride 0.9% 10 ML Syringe FLUSH PRN (00:39)
[2024-08-06] MEDS ORDERED: Sodium Chloride 0.9% 2.5 ML Syringe FLUSH PRN (00:39)
[2024-08-06] MEDS ORDERED: Terbutaline 1 MG/ML SDV SUBCUT PRN (00:39)
[2024-08-06] MEDS ORDERED: Ondansetron 4 MG/2 ML SDV IVPUSH PRN (00:39)
[2024-08-06] MEDS ORDERED: Water For Irrigation,Sterile 1,000 ML Container IRR PRN (00:39)
[2024-08-06] MEDS ORDERED: Butorphanol 2 MG/ML SDV IVPUSH PRN (00:39)
[2024-08-06] MEDS ORDERED: Lidocaine 1% 50 ML MDV INJECT PRN (00:39)
[2024-08-06] MEDS ORDERED: Carboprost Tromethamine 250 MCG/1 mL Vial IM PRN ×2 (00:39→17:23)
[2024-08-06] MEDS: Lactated Ringers 1,000 ML IV SCH (01:25)
[2024-08-06 01:29] LABS: BASOPHILS ABSOLUTE AUTO 0.04 K/uL (0.00-0.20); BASOPHILS PERCENT AUTO 0.3 % (0.0-1.0); EOSINOPHILS PERCENT AUTO 1.6 % (0.0-6.0); HEMATOCRIT 35.4 % (37.0-47.0); HEMOGLOBIN 11.9 g/dL (12.0-16.0); IMMATURE GRAN ABSOLUTE AUTO 0.08 K/uL (0.00-0.05); IMMATURE GRAN PERCENT AUTO 0.6 % (0.0-0.4); LYMPHOCYTES ABSOLUTE AUTO 3.21 K/uL (1.00-4.80); MEAN CORPUSCULAR HEMOGLOBIN 27.5 pg (28.0-32.0); MEAN CORPUSCULAR HGB CONC 33.6 g/dL (32.0-36.0); MEAN CORPUSCULAR VOLUME 81.9 fL (83.0-99.0); MEAN PLATELET VOLUME 11.3 fL (9.4-12.3); MONOCYTES ABSOLUTE AUTO 0.91 K/uL (0.00-0.80); MONOCYTES PERCENT AUTO 7.1 % (0.0-8.0); NEUTROPHILS ABSOLUTE AUTO 8.38 K/uL (1.80-7.70); NEUTROPHILS PERCENT AUTO 65.4 % (41.0-71.0); PLATELET COUNT,PLT 123 K/uL (150-400); RED BLOOD CELL COUNT 4.32 M/uL (4.10-5.30); WHITE BLOOD CELL COUNT,WBC 12.82 K/uL (3.9-11.3)
[2024-08-06] MEDS: Misoprostol 25 MCG (1/4 of 100 MCG) Tab VAG PRN ×2 (02:20→06:43)
[2024-08-06] MEDS ORDERED: Phenylephrine HCl In 0.9% NaCl 1 MG/10 ML Syringe IVPUSH PRN (06:45)
[2024-08-06] MEDS ORDERED: dexmedeTOMIDine HCl 200 MCG/2 ML SDV EPIDUR SCH (06:45)
[2024-08-06] MEDS ORDERED: ePHEDrine 50 MG/ML SDV IVPUSH PRN (06:45)
[2024-08-06] MEDS: Oxytocin/0.9 % Sodium Chloride 30 UNIT/500 ML BAG IV SCH ×2 (10:56→17:59)
[2024-08-06] MEDS: Ropivacaine HCl/PF 400 MG in Premix Bag 1 BAG EPIDUR SCH (13:19)
[2024-08-06] MEDS: Tranexamic Acid in NACL,ISO-OS 1,000 MG in Premix Bag 1 BAG IV PRN (17:08)
[2024-08-06] MEDS: Methylergonovine 0.2 MG/1 ML Amp IM PRN (17:20)
[2024-08-06] MEDS ORDERED: Misoprostol 200 MCG Tab RECTAL PRN (17:23)
[2024-08-06 17:32] LABS: PH,UMBILICAL ARTERIAL 7.35 (7.18-7.38); PH,UMBILICAL VENOUS 7.39 (7.25-7.45)
[2024-08-06] MEDS ORDERED: Oxytocin/0.9 % Sodium Chloride 30 UNIT/500 ML BAG ONE (17:33)
[2024-08-06] MEDS: Misoprostol 200 MCG Tab RECTAL PRN (18:00)
[2024-08-06] MEDS: Lanolin 100% Cream 7 GM Tube TOP PRN (20:21)
[2024-08-06] MEDS: Witch Hazel Medicated Pads 40/Jar TOP PRN (20:21)
[2024-08-06] MEDS: Prenatal Multivitamin with Calcium/Folic Acid/Iron Tab PO SCH (20:21)
[2024-08-06] MEDS: Benzocaine/Menthol 20%-0.5% Spray 78 GM Cannister TOP PRN (20:22)
[2024-08-06] MEDS: Docusate Sodium 100 MG Cap PO PRN (23:23)
[2024-08-07] MEDS: Ibuprofen 800 MG Tab PO PRN (05:29)
[2024-08-07] MEDS: Acetaminophen 500 MG Tab PO PRN (05:30)
[2024-08-07 05:56] LABS: HEMATOCRIT 35.1 % (37.0-47.0); HEMOGLOBIN 11.6 g/dL (12.0-16.0)
== END 2024-08-08 11:40 | disposition home or self-care (01) | DRG 560 ==
LOC: MW.OB → OBSVTOIN 16:58 → MW.OB 22:45
PROVIDERS: ADMIT Obstetrics & Gynecology; ATTEND Obstetrics & Gynecology
PROC: 10E0XZZ Delivery of Products of Conception, External Approach (ICD-10-PCS; principal; 2024-08-06)
PROC: 0KQM0ZZ Repair Perineum Muscle, Open Approach (ICD-10-PCS; 2024-08-06)
PROC: 3E0R3BZ Introduction of Anesthetic Agent into Spinal Canal, Percutaneous Approach (ICD-10-PCS; 2024-08-06)
PROC: 00HU33Z Insertion of Infusion Device into Spinal Canal, Percutaneous Approach (ICD-10-PCS; 2024-08-06)
PROC: 10907ZC Drainage of Amniotic Fluid, Therapeutic from Products of Conception, Via Natural or Artificial Opening (ICD-10-PCS; 2024-08-06)
PROC: 3E033VJ Introduction of Other Hormone into Peripheral Vein, Percutaneous Approach (ICD-10-PCS; 2024-08-06)
PROC: 3E0DXGC Introduction of Other Therapeutic Substance into Mouth and Pharynx, External Approach (ICD-10-PCS; 2024-08-06)
DX: O36.5930 Maternal care for other known or suspected poor fetal growth, third trimester, not applicable or unspecified (principal); O34.03 Maternal care for unspecified congenital malformation of uterus, third trimester; Z3A.38 38 weeks gestation of pregnancy; Z37.0 Single live birth; Q51.3 Bicornate uterus; O70.1 Second degree perineal laceration during delivery
CPT/HCPCS: 01967; 36415; 51702; 59000; 59020; 59025; 59409; 82803; 85014; 85018; 85025; 86592; 86850; 86900; 86901; A9270-GY; J2210; J2590; J2795; J7120